=== PATIENT | male | born 1960 | race Caucasian/White ===

== ENCOUNTER 2021-03-10 14:10 | Outpatient (CLI) | payer BC, SELFPAY ==
[2021-03-10 15:42] LABS: Add Urine Microscopic? YES; Appearance Urine Clear (Clear); Bacteria Urine Trace /hpf; Bilirubin Urine Negative (Negative); Blood Urine 2+ (Negative); Color Urine Yellow (Yellow); Glucose Urine UA Negative (Negative); Ketones Urine Negative (Negative); Leukocyte Esterase Ur 2+ LEU/UL (Negative); Mucus Urine Rare /lpf; Nitrate Urine Negative (Negative); Protein Urine Negative (Negative); RBC Urine 21-50 /hpf (0-2); Specific Grav Ur 1.016 (1.001-1.035); Squamous Epithelial Cell Urine Rare /hpf (Few); WBC Urine 21-30 /hpf
== END 2021-03-10 14:11 | disposition home or self-care (01) ==
PROVIDERS: PCP Internal Medicine; Visit Provider Internal Medicine
DX: R31.9 Hematuria, unspecified (principal)
CPT/HCPCS: 81001; 87086

== ENCOUNTER 2021-10-19 00:32 | Day surgery (SDC) | payer BC, SELFPAY ==
[2021-10-13 10:20] VITALS: BMI 24.0
--- NOTE | 2021-10-18 10:35 | WPDANESEPP ---
Anes - Eval Pre Procedure Procedure: Operation Date: 10/19/21 11:15 Proposed Procedures p Screening Colonoscopy - Trevor Moraes MD Date/Time: 10/18/21 10:35 Surgeon: lyndon Pre Op Diagnosis: neoplasm screening Patient Data Age: 61 Gender: M Height: 1.63 m Weight: 63.6 kg Allergies Allergy/AdvReac Type Severity Reaction Status Date / Time Iodinated Contrast Media Allergy Severe Swelling Verified 10/13/21 10:17 iodine Allergy Severe Swelling Verified 10/13/21 10:17 Contrast Media Allergy Severe Swelling Uncoded 10/13/21 10:17 Home Medications Medication Instructions Recorded Confirmed Type lisinopril 20 mg tablet 20 mg PO DAILY #90 tablet 07/07/21 10/13/21 Rx Patient hx anesthesia problems: none Family hx anesthesia problems: none Results Review: All pre-operative results and documents have been reviewed as part of the pre-operative evaluation. [facility] Past Medical History Medical History Essential (primary) hypertension Hx of malignant melanoma Leg fracture, left Nephrolithiasis Family History Family History Mother Patient's mother is in good health Sibling Patient's brother is in good health Hypertension Father Patient's father is Social History Social History Smoking status: Never smoker Alcohol intake: current Alcohol use details: occasionally/rarely Substance use: never Substance use type: does not use Living arrangements: with family Spiritual care concerns: No Exam Day of Procedure 10/18/21 10:35
[2021-10-19 10:19] VITALS: BP 120/85; PULSE 60; RESP 18; TEMP 36.6; O2SAT 100
[2021-10-19] MEDS: LACTATED RINGERS 1,000 ML 150 ML IV CONT (10:32)
--- NOTE | 2021-10-19 10:35 | WPDANESEFPP ---
Anes - Eval Final PreProcedure Day of Procedure 10/19/21 10:35 Patient weight: normal Heart: regular rate and rhythm Lungs: clear to auscultation and normal air movement Airway: Mallampati scale class II Neurological: alert and oriented Last oral intake: >/= 8 hours ASA classification: II Emergent: no Anesthetic plan: proceed Anesthesia type and monitoring: general GIVS and standard monitoring Results Review: All pre-operative results and documents have been reviewed as part of the pre-operative evaluation. Informed Consent: The patient's anesthetic plan and its attendant risks and benefits were discussed with the patient/family/POA. Questions were solicited and answers provided to the satisfaction of the patient/family/POA.
--- NOTE | 2021-10-19 10:56 | PM.HPGS ---
History of Present Illness History of Present Illness Consent: Risks, benefits, and alternatives have been discussed and questions answered. Patient agrees to proceed with procedure. Chief complaint: neoplasm screening Narrative: Ceferino Alexander is a 61 year old male referred for colon cancer screening Review of Systems Review of Systems: All systems reviewed & are unremarkable except as noted in HPI and below PMFSH Past Medical History Medical History Essential (primary) hypertension Hx of malignant melanoma Leg fracture, left Nephrolithiasis Family History Family History Mother Patient's mother is in good health Sibling Patient's brother is in good health Hypertension Father Patient's father is Social History Social History Smoking status: Never smoker Alcohol intake: current Alcohol use details: occasionally/rarely Substance use: never Substance use type: does not use Living arrangements: with family Spiritual care concerns: No Meds Home Medications and Allergies Home Medications Medication Instructions Recorded Confirmed Type lisinopril 20 mg tablet 20 mg PO DAILY #90 tablet 07/07/21 10/19/21 Rx Allergies Allergy/AdvReac Type Severity Reaction Status Date / Time Iodinated Contrast Media Allergy Severe Swelling Verified 10/19/21 10:11 iodine Allergy Severe Swelling Verified 10/19/21 10:11 Contrast Media Allergy Severe Swelling Uncoded 10/19/21 10:11 Vital Signs Vital Signs - 24 hr 10/19/21 10:19 Temperature 36.6 C Pulse Rate 60 Respiratory Rate 18 Blood Pressure 120/85 Pulse Oximetry 100 Exam Resp: Auscultation: clear to auscultation bilaterally Cardio: Rate: regular rate Rhythm: regular rhythm GI: GI Palp: Yes Soft to palpation and No Tenderness to palpation present (GI) Assessment and Plan Assessment and plan (1) Colon cancer screening: Code(s): Z12.11 - Encounter for screening for malignant neoplasm of colon Status: Acute Assessment and Plan: Colonoscopy with possible biopsy or polypectomy or cautery or injection of substances.
[2021-10-19 11:37] VITALS: BP 92/57; PULSE 78; RESP 22; O2SAT 97
[2021-10-19 11:47] VITALS: BP 95/57; PULSE 74; RESP 20; O2SAT 99
[2021-10-19 11:57] VITALS: BP 112/72; PULSE 64; RESP 17; O2SAT 100
== END 2021-10-19 12:01 | disposition home or self-care (01) ==
PROVIDERS: PCP Internal Medicine; Visit Provider Internal Medicine Gastroenterology
PROC: 0DJD8ZZ Inspection of Lower Intestinal Tract, Via Natural or Artificial Opening Endoscopic (ICD-10-PCS; CPT 45378; principal; 2021-10-19 11:15)
DX: Z12.11 Encounter for screening for malignant neoplasm of colon (principal); K57.30 Diverticulosis of large intestine without perforation or abscess without bleeding; K63.5 Polyp of colon; K63.3 Ulcer of intestine; I10 Essential (primary) hypertension
CPT/HCPCS: 45381; 45388; 88305; J2704; J7120

== ENCOUNTER 2023-12-23 14:54 | Outpatient (CLI) | payer BC, SELFPAY ==
--- NOTE | ~2023-12-23 | XR_ITS ---
XR foot LT min 3V DATE: 12/23/2023 15:08 INDICATION: Left foot pain TECHNIQUE: 4 views COMPARISON: None FINDINGS: Intramedullary mello and several distal tibial through screws are noted. There is hallux valgus and bunion deformity. There is mild joint space at the first metatarsophalange al joint consistent with osteoarthritis. No recent fracture, dislocation, periosteal reaction or bone destruction or erosive change. IMPRESSION: Postoperative change of tibia Hallux valgus and bunion deformity Mild osteoarthritis of first metatarsophalangeal joint Reviewed, dictated and finalized at location B.
== END 2023-12-23 14:55 | disposition home or self-care (01) ==
PROVIDERS: PCP Internal Medicine; Visit Provider Internal Medicine
DX: M20.12 Hallux valgus (acquired), left foot (principal); M19.072 Primary osteoarthritis, left ankle and foot
CPT/HCPCS: 73630

== ENCOUNTER 2024-07-09 13:45 | Outpatient (CLI) | payer BC, SELFPAY ==
--- NOTE | ~2024-07-09 | XR_ITS ---
XR hand RT min 3V Ordering provider: Michael Beasley DO History: . M79.641 - Pain in right hand. 3RD MCP PAIN. NO INJ . Comparison: None. FINDINGS: BONES: Sclerotic area in the proximal metaphysis of the first metacarpal bone which may be a fracture . Clinical correlation and follow-up advised. Sclerotic lesion in the proximal metaphysis of the proximal phalanx of the second finger. JOINT SPACES: Narrowing of the distal interphalangeal joints. Moderate Osteoarthritic changes of the first carpometacarpal joint. Cystic changes seen in the triquetral, lunate bones and also in the dist al metaphysis of the second and third metacarpal bones.. SOFT TISSUES: radiopaque shadow is projected over the thenar eminence. IMPRESSION: Highly suggestive fracture in the proximal metaphysis of the first metacarpal bone. Clinical correlat ion and follow-up advised. Sclerotic lesion in the proximal phalanx of the second finger .. Follow-up advised. Radiopaque foreign body in the soft tissues near to the fifth finger. Osteoarthritic changes of the distal interphalangeal joint. Cystic changes or erosive changes seen in the triquetral bone, lunate bone island distal metaphysis o f the second and third metacarpal bones which may be degenerative but evaluation for gout should be c onsidered.. Reviewed, dictated and finalized at location A. [employer] IMPRESSION: Highly suggestive fracture in the proximal metaphysis of the first metacarpal b one. Clinical correlation and follow-up advised. Sclerotic lesion in the proximal phalanx of the second finger .. Follow-up adv ised. Radiopaque foreign body in the soft tissues near to the fifth finger. Osteoarthritic changes of the distal interphalangeal joint. Cystic changes or erosive changes seen in the triquetral bone, lunate bone ronnie nd distal metaphysis of the second and third metacarpal bones which may be dege nerative but evaluation for gout should be considered..
== END 2024-07-09 13:46 | disposition home or self-care (01) ==
PROVIDERS: PCP Internal Medicine; Visit Provider Internal Medicine
DX: M19.041 Primary osteoarthritis, right hand (principal)
CPT/HCPCS: 73130